=== PATIENT | male | born 1945 | race Caucasian/White ===

== ENCOUNTER 2024-11-26 13:38 | Outpatient (CLI) | payer OTHER | END 2024-11-26 13:39 | disposition home or self-care (01) | LOC: CSHCT 13:38 | PROVIDERS: ATTEND Internal Medicine | DX: Z12.2 Encounter for screening for malignant neoplasm of respiratory organs (principal); Z87.891 Personal history of nicotine dependence; Z85.118 Personal history of other malignant neoplasm of bronchus and lung; R91.8 Other nonspecific abnormal finding of lung field; J43.9 Emphysema, unspecified | CPT/HCPCS: 71271; 94060; 94664; 94726; 94729; 94760 ==